=== PATIENT | female | born 1970 | race African-American/Black ===

== ENCOUNTER 2017-06-26 10:44 | Emergency (ER) | payer MEDICAID ==
[~2017-06-26] VITALS: Ht 165.1 cm; Wt 86.2 kg
[~2017-06-26 10:44] MED LIST: AMLO10TA4 PO; AMOX125S8 PO; CHLO25TA27 GT; IBUP-2030 PO; LISI-604 PO; MEDR10TA PO
[2017-06-26] MEDS ORDERED: KETOROLAC 60MG/2ML VIAL IM STA (14:34)
[2017-06-26 15:14] LABS: CLARITY URINE CLEAR (CLEAR); COLOR URINE YELLOW (YELLOW); KETONES URINE 2+ (NEGATIVE); LEUKOCYTE ESTERASE URINE TRACE (NEGATIVE); NITRITE URINE NEGATIVE (NEGATIVE); OCCULT BLOOD URINE TRACE (NEGATIVE); PROTEIN URINE NEGATIVE (NEGATIVE); SPECIFIC GRAVITY URINE 1.022 (1.005-1.030); UROBILINOGEN URINE 0.2 E.U./dL (0.2-1.0)
[2017-06-26 17:17] LABS: BASOPHILS % 0.5 % (0.0-2.0); EOSINOPHILS % 4.3 % (0.0-5.0); HEMOGLOBIN. 16.5 g/dL (12.0-16.0); LYMPHOCYTES % 32.4 % (20.0-50.0); MEAN CORPUSCULAR VOLUME 85.5 fL (81.0-99.0); MEAN PLATELET VOLUME 8.2 fl (7.4-10.4); MONOCYTES % 5.3 % (2.0-8.0); NEUTROPHILS % 57.5 % (40.0-76.0); PLATELET 354 x1000/uL (130-400); RED CELL DISTRIBUTION WIDTH 12.3 % (11.6-14.6)
[2017-06-26 17:23] LABS: CHLORIDE 100 mEq/L (98-107)
[2017-06-26 17:36] LABS: HCG SCREEN NEGATIVE
[2017-06-26 18:03] VITALS: BP 120/81
== END 2017-06-26 18:19 | disposition home or self-care (01) ==
LOC: ER 10:44
DX: R51 Headache (principal); R68.84 Jaw pain; R59.0 Localized enlarged lymph nodes; I10 Essential (primary) hypertension
CPT/HCPCS: 36415; 70450; 70486; 80053; 81003; 84703; 85025; 87040; 87070; 87086; 87430; 96372; 99285; J1885